=== PATIENT | male | born 1955 | race Two or more races ===

== ENCOUNTER 2017-10-01 19:42 | Emergency (ER) | payer SELFPAY ==
[2017-10-01 19:49] VITALS: BP 160/85; RESP 18; TEMP 98.8; O2SAT 99
[2017-10-01] MEDS ORDERED: Lidocaine 1% Inj (20ml) IJ ONE (19:56)
[2017-10-01] MEDS ORDERED: Bacitracin 500 Units/gm Oint Foilpak UD TOP STA (20:41)
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
[2017-10-01 20:46] VITALS: PULSE 70
== END 2017-10-01 20:49 | disposition home or self-care (01) ==
LOC: H.ER 19:42
DX: S61.210A Laceration without foreign body of right index finger without damage to nail, initial encounter (principal); W26.0XXA Contact with knife, initial encounter; Y92.89 Other specified places as the place of occurrence of the external cause